=== PATIENT | female | born 1985 | race Caucasian/White ===

== ENCOUNTER 2017-01-15 10:19 | Emergency (ER) | payer OTHER ==
[~2017-01-15] VITALS: Ht 154.9 cm; Wt 68.0 kg
[2017-01-15] MEDS ORDERED: ESTRADIOL 0.075 MG (10:46)
[2017-01-15] MEDS ORDERED: HYDROCODON-ACETAMINOPHN 10-325 (10:46)
--- NOTE | 2017-01-15 10:46 | ED GU-Female ---
General Chief Complaint: -Female Stated Complaint: PASSING BLOOD CLOTS IN URINE Source: patient Exam Limitations: no limitations History of Present Illness Time seen by provider: 10:45 Initial Comments To ER with reports of passing blood clots in her urine. She noticed this this morning when she got up to go the bathroom. She's had a complete hysterectomy so she is certain that this is not from the vagina. She's had some right lower suprapubic and low back pain for the past few days but thought nothing of this. No fevers chills nausea or vomiting. Timing/Duration: getting worse Severity/Quality: moderate Location: RLQ Radiation: none Activities at Onset: none Prior Genitourinary Problems: none Allergies and Home Medications Allergies Uncoded Allergies: IV ANTIBIOTIC UNSURE OF KIND (Allergy, Unknown, 01/15/17) Home Medications Sulfamethoxazole/Trimethoprim 1 Each Tablet, 1 EACH PO BID, #14 Prescribed by: ALICIA AGUSTIN on 01/15/17 1117 [Estradiol 0.075MG Patch (Twice] , (Reported) [Hydrocodon-Acetaminophn 10-325] , (Reported) Constitutional: see HPI EENTM: see HPI Respiratory: no symptoms reported Cardiovascular: no symptoms reported Genitourinary: see HPI Musculoskeletal: no symptoms reported Skin: no symptoms reported Psychiatric/Neurological: No Symptoms Reported Past Nobildv-Uixivb-Hwudwv Hx Patient Social History Alcohol Use: Occasionally Uses Number of Drinks Today: 0 Recreational Drug Use: No Smoking Status: Never a Smoker Recent Foreign Travel: No Contact w/Someone Who Travel: No Recent Hopitalizations: Yes (NECK SURGERY) Physical Abuse: No Sexual Abuse: No Seasonal Allergies Seasonal Allergies: No Surgeries History of Surgeries: Yes Surgeries: Appendectomy, Hysterectomy, Orthopedic Respiratory History of Respiratory Disorde: No Cardiovascular History of Cardiac Disorders: No Neurological History of Neurological Disord: No Reproductive System 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 Gastrointestinal History of Gastrointestinal Di: No Musculoskeletal History of Musculoskeletal Dis: Yes (FX NECK) Psychosocial Suicide Risk Score: 0 Integumentary History of Skin or Integumenta: No Physical Exam Vital Signs Vital Sign - Last 12Hours 01/15/17 10:30 Temp 97.1 Pulse 76 Resp 18 B/P (MAP) 135/99 Pulse Ox 100 Capillary Refill : General Appearance: WD/WN, no apparent distress HEENT: PERRL/EOMI, normal ENT inspection Neck: non-tender, full range of motion Respiratory: no respiratory distress, no accessory muscle use Gastrointestinal: normal bowel sounds, non tender Back: normal inspection, No CVA tenderness (R), No CVA tenderness (L) Extremities: normal range of motion, non-tender Neurologic/Psychiatric: alert, normal mood/affect, oriented x 3 Skin: normal color, warm/dry Progress/Results/Core Measures Results/Orders Lab Results Laboratory Tests Test 01/15/17 10:45 01/15/17 10:50 Range/Units Urine Color YELLOW Urine Clarity SLIGHTLY CLOUDY Urine pH 7 5-9 Urine Specific [place] 1.010 L 1.016-1.022 Urine Protein 2+ H NEGATIVE Urine Glucose (UA) NEGATIVE NEGATIVE Urine Ketones NEGATIVE NEGATIVE Urine Nitrite NEGATIVE NEGATIVE Urine Bilirubin NEGATIVE NEGATIVE Urine Urobilinogen NORMAL NORMAL MG/DL Urine Leukocyte Esterase 3+ H NEGATIVE Urine RBC (Auto) 5+ H NEGATIVE Urine RBC 0-2 /HPF Urine WBC 50-100 H /HPF Urine Squamous Epithelial Cells RARE /HPF Urine Crystals NONE /LPF Urine Bacteria FEW H /HPF Urine Casts NONE /LPF Urine Mucus NEGATIVE /LPF Urine Culture Indicated YES White Blood Count 10.5 4.3-11.0 10^3/uL Red Blood Count 4.55 4.35-5.85 10^6/uL Hemoglobin 13.8 11.5-16.0 G/DL Hematocrit 40 35-52 % Mean Corpuscular Volume 88 80-99 FL Mean Corpuscular Hemoglobin 30 25-34 PG Mean Corpuscular Hemoglobin Concent 34 32-36 G/DL Red Cell Distribution Width 11.8 10.0-14.5 % Platelet Count 245 130-400 10^3/uL Mean Platelet Volume 10.4 7.4-10.4 FL Neutrophils (%) (Auto) 57 42-75 % Lymphocytes (%) (Auto) 35 12-44 % Monocytes (%) (Auto) 7 0-12 % Eosinophils (%) (Auto) 1 0-10 % Basophils (%) (Auto) 0 0-10 % Neutrophils # (Auto) 6.0 1.8-7.8 X 10^3 Lymphocytes # (Auto) 3.7 1.0-4.0 X 10^3 Monocytes # (Auto) 0.8 0.0-1.0 X 10^3 Eosinophils # (Auto) 0.1 0.0-0.3 10^3/uL Basophils # (Auto) 0.0 0.0-0.1 10^3/uL Sodium Level 137 135-145 MMOL/L Potassium Level 3.9 3.6-5.0 MMOL/L Chloride Level 103 98-107 MMOL/L Carbon Dioxide Level 24 21-32 MMOL/L Anion Gap 10 5-14 MMOL/L Blood Urea Nitrogen 10 7-18 MG/DL Creatinine 0.72 0.60-1.30 MG/DL Estimat Glomerular Filtration Rate > 60 BUN/Creatinine Ratio 14 Glucose Level 96 70-105 MG/DL Calcium Level 9.7 8.5-10.1 MG/DL My Orders Orders - ALICIA AGUSTIN APRN Cbc With Automated Diff (01/15/17 10:35) Ua Culture If Indicated (01/15/17 10:35) Urine Bedside (01/15/17 10:35) Basic Metabolic Panel (01/15/17 10:35) Ct Abd/Pelvis Wo(Kidney Stone) (01/15/17 10:45) Urine Culture (01/15/17 10:45) Vital Signs/I&O Vital Sign - Last 12Hours 01/15/17 10:30 Temp 97.1 Pulse 76 Resp 18 B/P (MAP) 135/99 Pulse Ox 100 Diagnostic Imaging Diagonstic Imaging: CT Comments NAME: DIMITRIS CASTRO Scarlet [facility] REC#: [id number] PT STATUS: REG ER : 1985 PHYSICIAN: ALICIA AGUSTIN APRN ADMIT DATE: 01/15/17/ER Draft Date of Exam:01/15/17 CT ABD/PELVIS WO(KIDNEY STONE) PROCEDURE: CT urinary tract, rule out kidney stone. TECHNIQUE: Multiple contiguous axial images were obtained through the abdomen and pelvis without the use of intravenous contrast. INDICATION: Right lower pelvic pain, hematuria. There is no hydronephrosis. There is no perinephric or periureteric edema and no opaque ureteral stones or bladder calculi identified. There is some pelvic phleboliths as well as calcifications of the vas deferens. The gallbladder is surgically absent. Liver, spleen, adrenals and pancreas unremarkable. The aorta is nonaneurysmal. There is no bowel obstruction. There is no appendicitis or diverticulitis. No adnexal lesion. IMPRESSION: No opaque stone or hydronephrosis. Negative bladder. No inflammatory process or acute abdominal pelvic abnormalities. No findings to explain the presenting complaint. Dictated on workstation # [id number] Dict: 01/15/17 1112 Trans: 01/15/17 1117 [facility] [id number] Interpreted by: MARGARET WHITLEY Electronically signed by: Departure Impression Impression: Primary Impression: Urinary tract infection Disposition: HOME, SELF-CARE Condition: Stable Departure-Patient Inst. Decision time for Depature: 11:17 Referrals: NO,LOCAL PHYSICIAN (PCP/Family) Primary Care Physician Patient Instructions: Urinary Tract Infection, Adult (DC) Add. Discharge Instructions: 1. Drink plenty of fluids 2. Antibiotics as directed 3. Return to ER for any concerns All discharge instructions reviewed with patient and/or family. Voiced understanding. Scripts Sulfamethoxazole/Trimethoprim (Bactrim Ds Tablet) 1 Each Tablet 1 EACH PO BID, #14 TAB Prov: ALICIA AGUSTIN APRN 01/15/17 ALICIA AGUSTIN APRN Jan 15, 2017 10:46
[2017-01-15 11:02] LABS: BILIRUBIN,URINE NEGATIVE (NEGATIVE); KETONES,URINE NEGATIVE (NEGATIVE); LEUKOCYTE ESTERASE ,URINE 3+ (NEGATIVE); NITRITE,URINE NEGATIVE (NEGATIVE); PH,URINE 7 (5-9); PROTEIN,URINE 2+ (NEGATIVE); UROBILINOGEN,URINE NORMAL (NORMAL)
[2017-01-15 11:02] LABS: BASOPHILS % (AUTO) 0 % (0-10); EOSINOPHILS # (AUTO) 0.1 10^3/uL (0.0-0.3); EOSINOPHILS % (AUTO) 1 % (0-10); LYMPHOCYTES # (AUTO) 3.7 X 10^3 (1.0-4.0); LYMPHOCYTES % (AUTO) 35 % (12-44); MEAN CORPUSCULAR HEMOGLOBIN 30 PG (25-34); MEAN CORPUSCULAR HGB CONC 34 G/DL (32-36); MEAN CORPUSCULAR VOLUME 88 FL (80-99); MEAN PLATELET VOLUME 10.4 FL (7.4-10.4); MONOCYTES # (AUTO) 0.8 X 10^3 (0.0-1.0); MONOCYTES % (AUTO) 7 % (0-12); NEUTROPHILS % (AUTO) 57 % (42-75); PLATELET COUNT 245 10^3/uL (130-400); RED BLOOD COUNT 4.55 10^6/uL (4.35-5.85); RED CELL DISTRIBUTION WIDTH 11.8 % (10.0-14.5); WHITE BLOOD COUNT 10.5 10^3/uL (4.3-11.0)
[2017-01-15 11:10] LABS: SQUAMOUS EPITHELIAL CELL,UR RARE /HPF; WBC,URINE 50-100 /HPF
[2017-01-15] MEDS ORDERED: SULF1TAB35 PO (11:17)
--- NOTE | 2017-01-15 11:18 | Diagnostic Imaging Report ---
PROCEDURE: CT urinary tract, rule out kidney stone. TECHNIQUE: Multiple contiguous axial images were obtained through the abdomen and pelvis without the use of intravenous contrast. INDICATION: Right lower pelvic pain, hematuria. There is no hydronephrosis. There is no perinephric or periureteric edema and no opaque ureteral stones or bladder calculi identified. There is some pelvic phleboliths as well as calcifications of the vas deferens. The gallbladder is surgically absent. Liver, spleen, adrenals and pancreas unremarkable. The aorta is nonaneurysmal. There is no bowel obstruction. There is no appendicitis or diverticulitis. No adnexal lesion. IMPRESSION: No opaque stone or hydronephrosis. Negative bladder. No inflammatory process or acute abdominal pelvic abnormalities. No findings to explain the presenting complaint. Dictated by: Dictated on workstation # [id number]
[2017-01-15 11:34] LABS: ANION GAP 10 MMOL/L (5-14); BLOOD UREA NITROGEN 10 MG/DL (7-18); BUN/CREATININE RATIO 14; CALCIUM 9.7 MG/DL (8.5-10.1); CARBON DIOXIDE 24 MMOL/L (21-32); CHLORIDE 103 MMOL/L (98-107); CREATININE SERUM 0.72 MG/DL (0.60-1.30); GFR ESTIMATED > 60; GLUCOSE 96 MG/DL (70-105); POTASSIUM 3.9 MMOL/L (3.6-5.0); SODIUM 137 MMOL/L (135-145)
[2017-01-15 11:45] VITALS: BP 125/84
== END 2017-01-15 11:44 | disposition home or self-care (01) ==
LOC: ER 10:27
DX: N39.0 Urinary tract infection, site not specified (principal); Z32.02 Encounter for pregnancy test, result negative; Z90.710 Acquired absence of both cervix and uterus; Z90.49 Acquired absence of other specified parts of digestive tract
CPT/HCPCS: 36415; 74176; 80048; 81000; 85025; 87088; 99283

== ENCOUNTER → 2018-09-08 | Outpatient (CLI) | payer OTHER, BC ==
[~2018-09-08] MED LIST: ESTRADIOL 0.075 MG; HYDROCODON-ACETAMINOPHN 10-325; SULF1TAB35 PO
--- NOTE | 2018-09-08 13:37 | Diagnostic Imaging Report ---
PROCEDURE: US abdomen complete. TECHNIQUE: Multiple Real-time grayscale images were obtained over the abdomen in various projections. INDICATION: Upper abdominal pain. Patient is status post cholecystectomy 2 years ago. FINDINGS: The liver is enlarged at 19.7 cm. No discrete liver mass is identified. The portal vein is patent and shows normal direction of flow. The gallbladder is surgically absent. No biliary ductal dilatation is seen. The pancreas is unremarkable. The spleen is normal in size at 9.4 cm. The kidneys are unremarkable. No calculus or hydronephrosis is seen. There is no ascites. The abdominal aorta is nonaneurysmal. IMPRESSION: Status post cholecystectomy. The study is otherwise unremarkable. No acute abnormality is detected. Dictated by: Dictated on workstation # [id number]
== END ==
LOC: RAD FS 12:49
PROVIDERS: ATTEND Nurse Practitioner Family
DX: R10.10 Upper abdominal pain, unspecified (principal); Z90.49 Acquired absence of other specified parts of digestive tract
CPT/HCPCS: 76700

== ENCOUNTER 2018-09-24 05:35 | Outpatient (CLI) | payer OTHER, BC ==
[~2018-09-24] VITALS: Ht 154.9 cm; Wt 68.0 kg
[2018-09-24] MEDS ORDERED: ESTR-44 TD (10:57)
== END 2018-09-24 12:38 | disposition home or self-care (01) ==
LOC: PREOP 05:35
PROVIDERS: ATTEND Surgery
DX: Z01.818 Encounter for other preprocedural examination (principal)

== ENCOUNTER 2018-10-01 10:21 | Day surgery (SDC) | payer OTHER, BC ==
[~2018-10-01] VITALS: Ht 154.9 cm; Wt 68.0 kg
[~2018-10-01 10:21] MED LIST changes: +ESTR-44 TD
--- OUTSIDE RECORDS SUMMARY | 2018-10-01 10:23 | XMS REPORT | Continuity of Care Document ---
Author Organization Unknown Address Unknown Allergies Active Description Code Type Severity Reaction Onset Reported/Identified Relationship to Patient Clinical Status Yes IV ANTIBIOTIC UNSURE OF KIND IV ANTIBIOTIC UNSURE OF KIND Unknown N/A 01/15/2017 Yes No Known Drug Allergies [id number] Drug Allergy Unknown N/A 09/24/2018 Medications There is no data. Problems Date Dx Coded Attending Type Code Diagnosis Diagnosed By 01/15/2017 ALICIA AGUSTIN APRN Ot N39.0 URINARY TRACT INFECTION, SITE NOT SPECIF 01/15/2017 ALICIA AGUSTIN APRN Ot R10.31 RIGHT LOWER QUADRANT PAIN 01/15/2017 ALICIA AGUSTIN APRN Ot Z32.02 ENCOUNTER FOR TEST, RESULT NEG 01/15/2017 ALICIA AGUSTIN APRN Ot Z90.49 ACQUIRED ABSENCE OF OTHER SPECIFIED PART 01/15/2017 ALICIA AGUSTIN APRN Ot Z90.710 ACQUIRED ABSENCE OF BOTH CERVIX AND UTER 01/17/2017 ALICIA AGUSTIN APRN Ot N39.0 URINARY TRACT INFECTION, SITE NOT SPECIF 01/17/2017 ALICIA AGUSTIN APRN Ot R10.31 RIGHT LOWER QUADRANT PAIN 01/17/2017 ALICIA AGUSTIN APRN Ot Z32.02 ENCOUNTER FOR TEST, RESULT NEG 01/17/2017 ALICIA AGUSTIN APRN Ot Z90.49 ACQUIRED ABSENCE OF OTHER SPECIFIED PART 01/17/2017 ALICIA AGUSTIN APRN Ot Z90.710 ACQUIRED ABSENCE OF BOTH CERVIX AND UTER 01/21/2017 ALICIA AGUSTIN APRN Ot N39.0 URINARY TRACT INFECTION, SITE NOT SPECIF 01/21/2017 ALICIA AGUSTIN APRN Ot R10.31 RIGHT LOWER QUADRANT PAIN 01/21/2017 ALICIA AGUSTIN APRN Ot Z32.02 ENCOUNTER FOR TEST, RESULT NEG 01/21/2017 ALICIA AGUSTIN APRN Ot Z90.49 ACQUIRED ABSENCE OF OTHER SPECIFIED PART 01/21/2017 ALICIA AGUSTIN APRN Ot Z90.710 ACQUIRED ABSENCE OF BOTH CERVIX AND UTER 09/12/2018 JUDY BRAXTON SENIOR COBOL DEVELOPER Ot R10.10 UPPER ABDOMINAL PAIN, UNSPECIFIED 09/12/2018 JUDY BRAXTON SENIOR COBOL DEVELOPER Ot Z90.49 ACQUIRED ABSENCE OF OTHER SPECIFIED PART 09/22/2018 JUDY BRAXTON SENIOR COBOL DEVELOPER Ot R10.10 UPPER ABDOMINAL PAIN, UNSPECIFIED 09/22/2018 JUDY BRAXTON SENIOR COBOL DEVELOPER Ot Z90.49 ACQUIRED ABSENCE OF OTHER SPECIFIED PART 09/24/2018 HILARY KWON, CHANDRIKA Ot Z01.818 ENCOUNTER FOR OTHER PREPROCEDURAL EXAMIN Procedures There is no data. Results Test Result Range Complete urinalysis with reflex to culture - 01/15/17 10:45 Urine color determination YELLOW NRG Urine clarity determination SLIGHTLY CLOUDY NRG Urine pH measurement by test strip 7 5-9 Specific gravity of urine by test strip 1.010 1.016-1.022 Urine protein assay by test strip, semi-quantitative 2+ NEGATIVE Urine glucose detection by automated test strip NEGATIVE NEGATIVE Erythrocytes detection in urine sediment by light microscopy 5+ NEGATIVE Urine ketones detection by automated test strip NEGATIVE NEGATIVE Urine nitrite detection by test strip NEGATIVE NEGATIVE Urine total bilirubin detection by test strip NEGATIVE NEGATIVE Urine urobilinogen measurement by automated test strip (mass/volume) NORMAL NORMAL Urine leukocyte esterase detection by dipstick 3+ NEGATIVE Automated urine sediment erythrocyte count by microscopy (number/high power field) [HPF] NRG Automated urine sediment leukocyte count by microscopy (number/high power field) [HPF] NRG Bacteria detection in urine sediment by light microscopy FEW NRG Squamous epithelial cells detection in urine sediment by light microscopy RARE NRG Crystals detection in urine sediment by light microscopy NONE NRG Casts detection in urine sediment by light microscopy NONE NRG Mucus detection in urine sediment by light microscopy NEGATIVE NRG Complete urinalysis with reflex to culture YES NRG Bacterial urine culture - 01/15/17 10:45 Bacterial urine culture [id number] NRG COLONY COUNT <10,000 NRG FTX;REPORTABLE (SINGLE COLONY OBSERVED) NRG FREE TEXT ENTRY 2 PLUS, NRG FREE TEXT ENTRY 3 LACTOBACILLUS <10,000/ML NRG Complete blood count (CBC) with automated white blood cell (WBC) differential - 01/15/17 10:50 Blood leukocytes automated count (number/volume) 10.5 10*3/uL 4.3-11.0 Blood erythrocytes automated count (number/volume) 4.55 10*6/uL 4.35-5.85 Venous blood hemoglobin measurement (mass/volume) 13.8 g/dL 11.5-16.0 Blood hematocrit (volume fraction) 40 % 35-52 Automated erythrocyte mean corpuscular volume 88 [foz_us] 80-99 Automated erythrocyte mean corpuscular hemoglobin (mass per erythrocyte) 30 pg 25-34 Automated erythrocyte mean corpuscular hemoglobin concentration measurement (mass/volume) 34 g/dL 32-36 Automated erythrocyte distribution width ratio 11.8 % 10.0- 14.5 Automated blood platelet count (count/volume) 245 10*3/uL 130-400 Automated blood platelet mean volume measurement 10.4 [foz_us] 7.4-10.4 Automated blood neutrophils/100 leukocytes 57 % 42-75 Automated blood lymphocytes/100 leukocytes 35 % 12-44 Blood monocytes/100 leukocytes 7 % 0-12 Automated blood eosinophils/100 leukocytes 1 % 0-10 Automated blood basophils/100 leukocytes 0 % 0-10 Blood neutrophils automated count (number/volume) 6.0 10*3 1.8-7.8 Blood lymphocytes automated count (number/volume) 3.7 10*3 1.0-4.0 Blood monocytes automated count (number/volume) 0.8 10*3 0.0- 1.0 Automated eosinophil count 0.1 10*3/uL 0.0-0.3 Automated blood basophil count (count/volume) 0.0 10*3/uL 0.0-0.1 Whole blood basic metabolic panel - 01/15/17 10:50 Serum or plasma sodium measurement (moles/volume) 137 mmol/L 135-145 Serum or plasma potassium measurement (moles/volume) 3.9 mmol/L 3.6-5.0 Serum or plasma chloride measurement (moles/volume) 103 mmol/L 98-107 Carbon dioxide 24 mmol/L 21-32 Serum or plasma anion gap determination (moles/volume) 10 mmol/L 5-14 Serum or plasma urea nitrogen measurement (mass/volume) 10 mg/dL 7-18 Serum or plasma creatinine measurement (mass/volume) 0.72 mg/dL 0.60-1.30 Serum or plasma urea nitrogen/creatinine mass ratio 14 NRG Serum or plasma creatinine measurement with calculation of estimated glomerular filtration rate > NRG Serum or plasma glucose measurement (mass/volume) 96 mg/dL 70-105 Serum or plasma calcium measurement (mass/volume) 9.7 mg/dL 8.5-10.1 Encounters ACCT No. Visit Date/Time Discharge Status Pt. Type Provider Facility Loc./Unit Complaint [id number] 09/24/2018 05:35:00 09/24/2018 12:38:00 DIS Outpatient CHANDRIKA RICHARD MD [facility] PREOP EGD [id number] 09/08/2018 12:49:00 09/08/2018 23:59:59 CLS Outpatient JUDY BRAXTON APRN [facility] RAD FS UPPER ABD PAIN [id number] 01/15/2017 10:27:00 01/15/2017 11:44:00 DIS Emergency ALICIA AGUSTIN APRN [facility] ER PASSING BLOOD CLOTS IN URINE [id number] 10/01/2018 11:15:00 PEN Preadmit CHANDRIKA RICHARD MD [facility] ENDO REFLUX/NAUSEA/EPIGASTRIC PAIN
[2018-10-01] MEDS ORDERED: NS IV 500 ML 500 ML ONE (10:24)
[2018-10-01] MEDS ORDERED: NS IV 500 ML 500 ML IV PRN (10:27)
[2018-10-01] MEDS ORDERED: fentaNYL INJECTION 100 MCG/2 ML AMP IVP ONE (10:30)
[2018-10-01] MEDS ORDERED: LIDOCAINE JELLY 2% 6 ML SYRINGE MM PRN (10:30)
[2018-10-01] MEDS ORDERED: HURRICAINE EXT TUBE (BENZOCAINE) XX PRN (10:30)
[2018-10-01] MEDS ORDERED: MIDAZOLAM 2 MG/2 ML (VERSED) VIAL IVP ONE (10:30)
[2018-10-01 10:47] VITALS: BP 122/92
--- NOTE | 2018-10-01 11:24 | Conscious Sedation/ASA ---
Conscious Sedation Pre-Proced Time 10:30 ASA Score 2 For ASA 3 and 4: Consider anesthesia and medical clearance. Also, for patients with a history of failed moderate sedation consider anesthesia. Airway Lungs Heart ASA score ASA 1: a normal healthy patient ASA 2: a patient with a mild systemic disease (mid diabetes, controlled hypertension, obesity ASA 3: a patient with a severe systemic disease that limits activity (angina, COPD, prior Myocardial infarction) ASA 4: a patient with an incapacitating disease that is a constant threat to life (CHF, renal failure) ASA 5: a moribund patient not expected to survive 24 hrs. (ruptured aneurysm) ASA 6: a declared brain- patient whose organs are being harvested. For emergent operations, add the letter E after the classification Mallampati Classification Grade 2 Sedation Plan Analgesia, Amnesia, Plan communicated to team members, Discussed options with patient/fam, Discussed risks with patient/fam The patient is an appropriate candidate to undergo the planned procedure, sedation, and anesthesia. The patient immediately re-assessed prior to indication. CHANDRIKA RICHARD MD October 01, 2018 11:24
--- NOTE | 2018-10-01 11:25 | Progress Note-Pre Operative ---
Pre-Operative Progress Note H&P Reviewed The H&P was reviewed, patient examined and no changes noted. Date Seen by Provider: October 01, 2018 Time Seen by Provider: 10: Date H&P Reviewed: October 01, 2018 Time H&P Reviewed: :30 Pre-Operative Diagnosis: GERD CHANDRIKA RICHARD MD October 01, 2018 11:24
--- NOTE | 2018-10-01 11:28 | Discharge Inst-Surgical ---
D/C Lap Instructions-HILARY Follow Up Activity as tolerated High Fiber Diet 25g or more per day Avoid Alcohol, Caffeine, Spicy [place] and Acid foods. Drink 64 fluid oz or more of fluids per day. Symptoms to Report: Fever over 101 degree F, Nausea/Vomiting If any problems/questions: Contact your physician or go to Emergency Room CHANDRIKA RICHARD MD October 01, 2018 11:28
[2018-10-01] MEDS ORDERED: ACETAMINOPHEN 325 MG TABLET PO PRN (11:30)
[2018-10-01] MEDS ORDERED: ONDANSETRON 4 MG/2 ML (SDV) Z0FRAN IVP PRN (11:30)
[2018-10-01] MEDS ORDERED: HYDROcodone/APAP 5 MG/325 MG (LORTAB) TAB PO PRN (11:30)
[2018-10-01] MEDS ORDERED: morphine INJ 10 MG/ML 1ML (SYR OR VIAL) IVP PRN (11:30)
[2018-10-01] MEDS ORDERED: LIDOCAINE JELLY 2% 6 ML SYRINGE ONE (11:53)
[2018-10-01] MEDS ORDERED: fentaNYL INJECTION 100 MCG/2 ML AMP ONE (11:54)
[2018-10-01] MEDS ORDERED: HURRICAINE EXT TUBE (BENZOCAINE) ONE (11:54)
[2018-10-01] MEDS ORDERED: MIDAZOLAM 2 MG/2 ML (VERSED) VIAL ONE ×4 (11:54)
[2018-10-01] MEDS ORDERED: diphenhydrAMINE 50 MG/ML INJ (BENADRYL) ONE (12:19)
[2018-10-01 13:05] VITALS: BP 126/83
--- NOTE | 2018-10-01 13:08 | Progress Note-Post Operative ---
Post-Operative Progess Note Surgeon (s)/President/Gm Production & Live Experiences (s) Surgeon CHANDRIKA RICHARD MD President/Gm Production & Live Experiences: none Pre-Operative Diagnosis GERD Post-Operative Diagnosis reflux esophagitis(stage 2), small-moderate, moderate gastritis. Procedure & Operative Findings Date of Procedure 10/01/18 Procedure Performed/Findings EGD with bx. Anesthesia Type cs Estimated Blood Loss Estimated blood loss (mL): minimal Specimens/Packing Specimens Removed none CHANDRIKA RICHARD MD October 01, 2018 13:07
[2018-10-01] MEDS ORDERED: SUCR1TAB36 PO (13:20)
[2018-10-01] MEDS ORDERED: PANT40TA3 PO (13:20)
[2018-10-01 13:35] VITALS: BP 115/83
--- NOTE | 2018-10-01 15:47 | OPERATIVE REPORT ---
DATE OF SERVICE: 10/01/2018 ATTENDING PRIMARY CARE PHYSICIAN: Haider Solomon DO PREOPERATIVE DIAGNOSIS: Gastroesophageal reflux disease. POSTOPERATIVE DIAGNOSES: Reflux esophagitis stage II, small to moderate size hiatal hernia, which appeared to be a type 1 sliding hiatal hernia, approximately 2.5 cm in size, moderate gastritis. PROCEDURE: EGD with biopsy. SURGEON: Chandrika Richard MD ANESTHESIA: Conscious sedation. ESTIMATED BLOOD LOSS: Minimal. FINDINGS: Reflux esophagitis stage II, small to moderate size hiatal hernia, which appeared to be a type 1 sliding hiatal hernia, approximately 2.5 cm in size, moderate gastritis. DISPOSITION: The patient tolerated the procedure well. INDICATIONS: The patient is a 33-year-old female, referred over to us for epigastric burning sensation, reflux as well as occasional regurgitation. She states that she has had these symptoms for some time; however, has not caused a problem or worsened until more recently. She does have significant risk factors including a 3 pack year smoking history for several years; however, states that she quit several years ago. She also does drink alcohol on the weekends and when she does drink, she does have a significant amount in terms of volume. She also does take in significant amounts of caffeinated beverages with coffee and pop. DESCRIPTION OF PROCEDURE: The patient was brought to the endoscopy suite, laid in the left lateral decubitus position with head slightly elevated. After adequate IV pain and sedative medications and conscious sedation anesthesia, the mouthpiece was applied. The endoscope was placed in the mouth, visualizing the pharynx and hypopharyngeal region. Vocal cords, epiglottis and vallecula were identified and appeared to be normal. The endoscope was then gently intubated in the esophageal opening and esophagus was insufflated. The endoscope was then advanced to the first, second and third portion of the esophagus. At the level of the GE junction, a reflux esophagitis stage II was identified. There were no ulcers or strictures identified in this region. The GE junction appeared to be intrathoracic consistent with a hiatal hernia as well. A biopsy was taken using forceps with visualization of good hemostasis. The endoscope was then advanced into the stomach and endoscope retroflexed, visualizing a small to moderate size hiatal hernia, being a type 1 hiatal hernia. The size was approximately 2.5 cm in size and definitely, a cause for some of her symptomatology. There was a moderate severity gastritis throughout the stomach, more towards the stomach antrum. There were no formal ulcerations, polyps or any neoplasms. A biopsy was taken of the antrum to rule out H. pylori with visualization of good hemostasis. The endoscope was then advanced to the pylorus into the first and second portion of the duodenum, which appeared normal with no distal obstructions. The endoscope was then slowly withdrawn while taking a second look and suctioning of residual air with no additional findings. The patient tolerated the procedure well. We will recommend conservative management for now with the necessary lifestyle and diet accommodation including moderation of risk factors, which would include alcoholic beverage intake, caffeinated beverage intake as well as taking small and more frequent meals and avoidance of eating at night. She also needs to take in small and more frequent meals and proceed with head elevation while lying supine. We will also start her on Protonix 40 mg daily as well as Carafate 1 gram q.i.d. for two weeks, then on a p.r.n. basis. If she has continued symptoms despite maximum medical therapy, she does have a small to moderate size hiatal hernia and we would evaluate her for a hiatal hernia repair; however, before proceeding with this, we would get an esophageal manometry study to rule out any esophageal dysmotility. Job ID: [id number] DocumentID: [id number] Dictated Date: 10/01/2018 13:07:42 Advertising Operations Coordinator Date: 10/01/2018 15:46:18 Dictated By: CHANDRIKA RICHARD MD
== END 2018-10-01 13:40 | disposition home or self-care (01) ==
LOC: ENDO 10:21
PROVIDERS: ATTEND Surgery
DX: K21.0 Gastro-esophageal reflux disease with esophagitis (principal); K44.9 Diaphragmatic hernia without obstruction or gangrene; K29.70 Gastritis, unspecified, without bleeding; Z87.891 Personal history of nicotine dependence

== ENCOUNTER → 2019-07-29 | Outpatient (CLI) | payer BC, OTHER ==
[~2019-07-29] MED LIST changes: +PANT40TA3 PO; +SUCR1TAB36 PO
--- NOTE | 2019-07-29 13:02 | Diagnostic Imaging Report ---
PROCEDURE: CT abdomen and pelvis without contrast. TECHNIQUE: Multiple contiguous axial images were obtained through the abdomen and pelvis without the use of intravenous contrast. Auto Exposure Controls were utilized during the CT exam to meet ALARA standards for radiation dose reduction. INDICATION: Urinary tract infections, pelvic pain. COMPARISON: 01/15/2017. FINDINGS: The unopacified urinary bladder and its wall appear normal. There is no appendicitis or diverticulitis. The unobstructed kidneys are nonfocal and nonacute. No radiodense urinary tract stone. No perinephric or periureteric edema. The gallbladder is surgically absent. No pathological bile duct dilatation. No focal inflammatory process. The aorta is nonaneurysmal. There is no ileus or bowel obstruction. No ascites, abscess, hematoma, or other acute fluid collection. No acute finding. IMPRESSION: 1. Unremarkable stable noncontrasted CT abdomen/pelvis. 2. In particular, no acute or chronic urinary tract pathology is apparent. Dictated by: Dictated on workstation # [id number]
== END ==
LOC: RAD 11:49
PROVIDERS: ATTEND Urology
DX: Z87.440 Personal history of urinary (tract) infections (principal)
CPT/HCPCS: 74176

== ENCOUNTER 2019-09-11 07:08 | Outpatient (RCR) | payer BC ==
[~2019-09-11] VITALS: Ht 157.9 cm; Wt 78.1 kg
[~2019-09-11 07:08] MED LIST changes: +CHOL4PAC2 PO; +ETON1VAG VG
== END 2019-09-11 15:49 | disposition home or self-care (01) ==
LOC: PREOP 07:08
PROVIDERS: ATTEND Surgery
DX: Z01.818 Encounter for other preprocedural examination (principal); Z11.59 Encounter for screening for other viral diseases
CPT/HCPCS: 87635

== ENCOUNTER 2019-10-01 09:07 | Outpatient (RCR) | payer BC ==
[~2019-10-01] VITALS: Ht 154 cm; Wt 75.0 kg
== END 2019-10-01 15:40 | disposition home or self-care (01) ==
LOC: PREOP 09:07
PROVIDERS: ATTEND Urology
DX: Z01.818 Encounter for other preprocedural examination (principal); Z11.59 Encounter for screening for other viral diseases
CPT/HCPCS: 87635

== ENCOUNTER 2019-10-05 07:57 | Day surgery (SDC) | payer BC ==
[2019-10-05] VITALS (12 sets, daily range): BP systolic 101–137; BP diastolic 58–93
[~2019-10-05] VITALS: Ht 154 cm; Wt 75.0 kg
--- OUTSIDE RECORDS SUMMARY | 2019-10-05 08:04 | XMS REPORT | Continuity of Care Document ---
Author Organization Unknown Address Unknown Phone Unavailable Allergies Active Description Code Type Severity Reaction Onset Reported/Identified Relationship to Patient Clinical Status Yes IV ANTIBIOTIC UNSURE OF KIND I V ANTIBIOTIC UNSURE OF KIND Unknown N/A 01/15/2017 Yes No Known Drug Allergies [id number] Drug Allergy Unknown N/A 09/29/2019 Medications There is no data. Problems Date Dx Coded Attending Type Code Diagnosis Diagnosed By 04/04/1539 CLOVER MAGANA MD Ot Z01.8 18 ENCOUNTER FOR OTHER PREPROCEDURAL EXAMIN 04/04/1539 CLOVER MAGANA MD Ot Z11.5 9 ENCOUNTER FOR SCREENING FOR OTHER VIRAL 04/04/1548 CHANDRIKA RICHARD MD Ot Z01.81 8 ENCOUNTER FOR OTHER PREPROCEDURAL EXAMIN 04/04/1548 CHANDRIKA RICHARD MD Ot Z11.59 ENCOUNTER FOR SCREENING FOR OTHER VIRAL 01/15/2017 ALICIA AGUSTIN APRN Ot N39 .0 URINARY TRACT INFECTION, SITE NOT SPECIF 01/15/2017 ALICIA AGUSTIN APRN Ot R10.31 RIGHT LOWER QUADRANT PAIN 01/15/2017 ALICIA AGUSTIN APRN Ot Z32.02 ENCOUNTER FOR TEST, RESULT NEG 01/15/2017 ALICIA AGUSTIN APRN Ot Z90.49 ACQUIRED ABSENCE OF OTHER SPECIFIED PART 01/15/2017 ALICIA AGUSTIN APRN Ot Z90.710 ACQUIRED ABSENCE OF BOTH CERVIX AND UTER 01/17/2017 ALICIA AGUSTIN APRN Ot N39 .0 URINARY TRACT INFECTION, SITE NOT SPECIF 01/17/2017 ALICIA AGUSTIN APRN Ot R10.31 RIGHT LOWER QUADRANT PAIN 01/17/2017 ALICIA AGUSTIN APRN Ot Z32.02 ENCOUNTER FOR TEST, RESULT NEG 01/17/2017 ALICIA AGUSTIN APRN Ot Z90.49 ACQUIRED ABSENCE OF OTHER SPECIFIED PART 01/17/2017 ALICIA AGUSTIN APRN Ot Z90.710 ACQUIRED ABSENCE OF BOTH CERVIX AND UTER 01/21/2017 AGUSTIN, PETER J PHOSPHORIC ACID OPERATOR Ot N39 .0 URINARY TRACT INFECTION, SITE NOT SPECIF 01/21/2017 ALICIA AGUSTIN PHOSPHORIC ACID OPERATOR Ot R10.31 RIGHT LOWER QUADRANT PAIN 01/21/2017 ALICIA AGUSTIN PHOSPHORIC ACID OPERATOR Ot Z32.02 ENCOUNTER FOR TEST, RESULT NEG 01/21/2017 ALICIA AGUSTIN PHOSPHORIC ACID OPERATOR Ot Z90.49 ACQUIRED ABSENCE OF OTHER SPECIFIED PART 01/21/2017 ALICIA AGUSTIN PHOSPHORIC ACID OPERATOR Ot Z90.710 ACQUIRED ABSENCE OF BOTH CERVIX AND UTER 09/12/2018 JUDY BRAXTON PHOSPHORIC ACID OPERATOR Ot R10. 10 UPPER ABDOMINAL PAIN, UNSPECIFIED 09/12/2018 JUDY BRAXTON PHOSPHORIC ACID OPERATOR Ot Z90. 49 ACQUIRED ABSENCE OF OTHER SPECIFIED PART 09/22/2018 JUDY BRAXTON PHOSPHORIC ACID OPERATOR Ot R10. 10 UPPER ABDOMINAL PAIN, UNSPECIFIED 09/22/2018 JUDY BRAXTON PHOSPHORIC ACID OPERATOR Ot Z90. 49 ACQUIRED ABSENCE OF OTHER SPECIFIED PART 09/24/2018 CHANDRIKA RICHARD MD Ot Z01.81 8 ENCOUNTER FOR OTHER PREPROCEDURAL EXAMIN 10/01/2018 CHANDRIKA RICHARD MD Ot K21.0 GASTRO-ESOPHAGEAL REFLUX DISEASE WITH ES 10/01/2018 CHANDRIKA RICHARD MD Ot K29.70 GASTRITIS, UNSPECIFIED, WITHOUT BLEEDING 10/01/2018 CHANDRIKA RICHARD MD Ot K44.9 DIAPHRAGMATIC HERNIA WITHOUT OBSTRUCTION 10/01/2018 CHANDRIKA RICHARD MD Ot Z87.89 1 PERSONAL HISTORY OF NICOTINE DEPENDENCE 10/21/2018 JUDY BRAXTON PHOSPHORIC ACID OPERATOR Ot R10. 10 UPPER ABDOMINAL PAIN, UNSPECIFIED 10/21/2018 JUDY BRAXTON PHOSPHORIC ACID OPERATOR Ot Z90. 49 ACQUIRED ABSENCE OF OTHER SPECIFIED PART 10/21/2018 JUDY BRAXTON PHOSPHORIC ACID OPERATOR Ot R10. 10 UPPER ABDOMINAL PAIN, UNSPECIFIED 10/21/2018 JUDY BRAXTON PHOSPHORIC ACID OPERATOR Ot Z90. 49 ACQUIRED ABSENCE OF OTHER SPECIFIED PART 10/24/2018 JUDY BRAXTON PHOSPHORIC ACID OPERATOR Ot R10. 10 UPPER ABDOMINAL PAIN, UNSPECIFIED 10/24/2018 JUDY BRAXTON PHOSPHORIC ACID OPERATOR Ot Z90. 49 ACQUIRED ABSENCE OF OTHER SPECIFIED PART 11/17/2018 CHANDRIKA RICHARD MD Ot K21.0 GASTRO-ESOPHAGEAL REFLUX DISEASE WITH ES 11/17/2018 CHANDRIKA RICHARD MD Ot K29.70 GASTRITIS, UNSPECIFIED, WITHOUT BLEEDING 11/17/2018 CHANDRIKA RICHARD MD, Ot K44.9 DIAPHRAGMATIC HERNIA WITHOUT OBSTRUCTION 11/17/2018 CHANDRIKA RICHARD MD, Ot Z87.89 1 PERSONAL HISTORY OF NICOTINE DEPENDENCE 01/27/2019 JUDY BRAXTON APRN Ot R10. 10 UPPER ABDOMINAL PAIN, UNSPECIFIED 01/27/2019 JUDY BRAXTON APRN Ot Z90. 49 ACQUIRED ABSENCE OF OTHER SPECIFIED PART 04/16/2019 JUDY BRAXTON PHOSPHORIC ACID OPERATOR Ot R10. 10 UPPER ABDOMINAL PAIN, UNSPECIFIED 04/16/2019 JUDY BRAXTON APRN Ot Z90. 49 ACQUIRED ABSENCE OF OTHER SPECIFIED PART 07/31/2019 CLOVER MAGANA MD Ot Z87.4 40 PERSONAL HISTORY OF URINARY (TRACT) INFE 08/15/2019 CLOVER MAGANA MD Ot Z87.4 40 PERSONAL HISTORY OF URINARY (TRACT) INFE 2019 CHANDRIKA RICHARD MD, Ot Z01.81 8 ENCOUNTER FOR OTHER PREPROCEDURAL EXAMIN 2019 CHANDRIKA RICHARD MD, Ot Z11.59 ENCOUNTER FOR SCREENING FOR OTHER VIRAL 09/21/2019 CHANDRIKA RICHARD MD, Ot K21.9 GASTRO-ESOPHAGEAL REFLUX DISEASE WITHOUT 09/21/2019 CHANDRIKA RICHARD MD Ot K62.6 ULCER OF ANUS AND RECTUM 09/21/2019 CHANDRIKA RICHARD MD Ot K62.89 OTHER SPECIFIED DISEASES OF ANUS AND REC 09/21/2019 CHANDRIKA RICHARD MD, Ot K63.89 OTHER SPECIFIED DISEASES OF INTESTINE 09/21/2019 CHANDRIKA RICHARD MD, Ot K92.1 MELENA 09/21/2019 CHANDRIKA RICHARD MD Ot R19.7 DIARRHEA, UNSPECIFIED 09/21/2019 CHANDRIKA RICHARD MD, Ot Z79.89 9 OTHER [facility] (CURRENT) DRUG THERAPY 09/21/2019 CHANDRIKA RICHARD MD, Ot Z82.49 FAMILY HX OF ISCHEM HEART DIS AND OTH DI 09/21/2019 CHANDRIKA RICHARD MD, Ot Z87.89 1 PERSONAL HISTORY OF NICOTINE DEPENDENCE 09/21/2019 CHANDRIKA RICHARD MD, Ot Z88.8 ALLERGY STATUS TO OTH DRUG/MEDS/BIOL SUB 09/23/2019 CHANDRIKA RICHARD MD, Ot K21.9 GASTRO-ESOPHAGEAL REFLUX DISEASE WITHOUT 09/23/2019 CHANDRIKA RICHARD MD, Ot K62.6 ULCER OF ANUS AND RECTUM 09/23/2019 CHANDRIKA RICHARD MD, Ot K62.89 OTHER SPECIFIED DISEASES OF ANUS AND REC 09/23/2019 CHANDRIKA RICHADR MD, Ot K63.89 OTHER SPECIFIED DISEASES OF INTESTINE 09/23/2019 CHANDRIKA RICHARD MD, Ot K92.1 MELENA 09/23/2019 CHANDRIKA RICHARD MD, Ot R19.7 DIARRHEA, UNSPECIFIED 09/23/2019 CHANDRIKA RICHARD MD, Ot Z79.89 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 Results Test Result Range Complete urinalysis with reflex to cultu re - 01/15/17 10:45 Urine color determination YELLOW NRG Urine clarity determination SLIGHTLY CLOUDY NRG Urine pH measurement by test strip 7 5-9 Specific gravity of urine by test strip 1.010 1.016-1.022 Urine protein assay by test strip, semi-quantitative 2+ NEGATIVE Urine glucose detection by automated test strip NE GATIVE NEGATIVE Erythrocytes detection in urine sediment by light micr oscopy 5+ NEGATIVE Urine ketones detection by automated test strip NE GATIVE NEGATIVE Urine nitrite detection by test strip NEGATIVE NEGATIVE Urine total bilirubin detection by test strip NEGA TIVE NEGATIVE Urine urobilinogen measurement by automated test strip (mass/volume) NORMAL NORMAL Urine leukocyte esterase detection by dipstick 3+ NEGATIVE Automated urine sediment erythrocyte cou nt by microscopy (number/high power field) [HPF] NRG Automated urine sediment leukocyte count by microscopy (number/high power field) [HPF] NRG Bacteria detection in urine sediment by light microsco py FEW NRG Squamous epithelial cells detection in u rine sediment by light microscopy RARE NRG Crystals detection in urine sediment by light microsco py NONE NRG Casts detection in urine sediment by light microscopy NONE NRG Mucus detection in urine sediment by light microscopy NEGATIVE NRG Complete urinalysis with reflex to culture YES NRG Bacterial urine culture - 01/15/17 10:45 Bacterial urine culture [id number] NRG COLONY COUNT <10,000 NRG FTX;REPORTABLE (SINGLE COLONY OBSERVED) NRG FREE TEXT ENTRY 2 PLUS, NRG FREE TEXT ENTRY 3 LACTOBACILLUS <10,000/ML NRG Complete blood count (CBC) with automate d white blood cell (WBC) differential - 01/15/17 10:50 Blood leukocytes automated count (number/volume) 10.5 10*3/uL 4.3-11.0 Blood erythrocytes automated count (number/volume) 4.55 10*6/uL 4.35-5.85 Venous blood hemoglobin measurement (mass/volume) 13.8 g/dL 11.5-16.0 Blood hematocrit (volume fraction) 40 % 35-52 Automated erythrocyte mean corpuscular volume 88 [ foz_us] 80-99 Automated erythrocyte mean corpuscular h emoglobin (mass per erythrocyte) 30 pg 25-34 Automated erythrocyte mean corpuscular h emoglobin concentration measurement (mass/volume) 34 g/dL 32-36 Automated erythrocyte distribution width ratio 11. 8 % 10.0- 14.5 Automated blood platelet count [...] 10*3 1.0-4.0 Blood monocytes automated count (number/volume) 0. 8 10*3 0.0-1.0 Automated eosinophil count 0.1 10*3/uL 0 .0-0.3 Automated blood basophil count (count/volume) 0.0 10*3/uL 0.0-0.1 Whole blood basic metabolic panel - 01/04 06/22 10:50 Serum or plasma sodium measurement (moles/volume) 137 mmol/L 135-145 Serum or plasma potassium measurement (moles/volume) 3.9 mmol/L 3.6-5.0 Serum or plasma chloride measurement (moles/volume) 103 mmol/L 98-107 Carbon dioxide 24 mmol/L 21-32 Serum or plasma anion gap determination (moles/volume) 10 mmol/L 5-14 Serum or plasma urea nitrogen measurement (mass/volume ) 10 mg/dL 7-18 Serum or plasma creatinine measurement (mass/volume) 0.72 mg/dL 0.60-1.30 Serum or plasma urea nitrogen/creatinine mass ratio 14 NRG Serum or plasma creatinine measurement w ith calculation of estimated glomerular filtration rate > NRG Serum or plasma glucose measurement (mass/volume) 96 mg/dL 70-105 Serum or plasma calcium measurement (mass/volume) 9.7 mg/dL 8.5-10.1 Coronavirus SARS-CoV-2 SO 2018 - 0 12:56 Coronavirus Ab [Units/volume] in Serum Negative Negative Stool bacteria identification by culture - 09/16/19 11:05 Coronavirus SARS-CoV-2 SO 2018 0 13:29 Coronavirus Ab [Units/volume] in Serum Negative Negative Encounters ACCT No. Visit Date/Time Discharge Status Pt. Type Provider Facility Loc./Unit Complaint [id number] 10/01/2019 09:07:00 15:40:00 DIS Outpatient CLOVER MAGANA MD [facility] PREOP CYSTOCELE [id number] 09/16/2019 08:42:00 12:00:00 DIS Outpatient CHANDRIKA RICHARD MD [facility] ENDO +BLOOD IN STOOL/DIARRHE A/ABD PAIN [id number] 2019 07:08:00 15:49:00 DIS Outpatient CHANDRIKA RICHARD MD [facility] PREOP COLONOSCOPY [id number] 07/29/2019 11:49:00 23:59:59 CLS Outpatient CLOVER MAGANA MD [facility] RAD H/O UTIS [id number] 10/01/2018 10:21:00 13:40:00 DIS Outpatient CHANDRIKA RICHARD MD [facility] ENDO REFLUX/NAUSEA/EPIGASTRI C PAIN [id number] 09/24/2018 05:35:00 019 12:38:00 DIS Outpatient HILARY KWON, CHANDRIKA [facility] PREOP EGD [id number] 09/08/2018 12:49:00 019 23:59:59 CLS Outpatient JUDY BRAXTON PHOSPHORIC ACID OPERATOR [facility] RAD FS UPPER ABD PAIN [id number] 01/15/2017 10:27:00 017 11:44:00 DIS Emergency ALICIA AGUSTIN PHOSPHORIC ACID OPERATOR [facility] ER PASSING BLOOD CLOTS IN URINE [id number] 10/05/2019 09:00:00 P NIGHAT MAGANA MD, CLOVER Cifuentes [facility] CYSTOCELE
--- NOTE | 2019-10-05 08:11 | Progress Note-Pre Operative ---
Pre-Operative Progress Note H&P Reviewed The H&P was reviewed, patient examined and no changes noted. Date Seen by Provider: Oct 05, 2019 Time Seen by Provider: 08:11 Date H&P Reviewed: Oct 05, 2019 Time H&P Reviewed: 08:11 Pre-Operative Diagnosis: CYSTOCELE, LIBBY, AND OAB CLOVER MAGANA MD Oct 05, 2019 08:11
[2019-10-05] MEDS ORDERED: LACTATED RINGERS 1,000 ML IV SCH ×2 (08:13→08:15)
--- NOTE | 2019-10-05 08:13 | Progress Note-Post Operative ---
Post-Operative Progess Note Surgeon (s)/Front Office Administrator (s) Surgeon CLOVER MAGANA MD Front Office Administrator: NONE Pre-Operative Diagnosis CYSTOCELE, LIBBY, AND OAB Post-Operative Diagnosis SAME Procedure & Operative Findings Date of Procedure 10/05/19 Procedure Performed/Findings ANTERIOR REPAIR, PVS, AND CYSTOSCOPY Anesthesia Type GENERAL Estimated Blood Loss Estimated blood loss (mL): 100 CC Specimens/Packing Specimens Removed NONE TO PATH PackinGM ESTRACE VAG PACK CLOVER MAGANA MD Oct 05, 2019 08:13
[2019-10-05] MEDS ORDERED: HYDROcodone/APAP 10 MG/325 MG (LORTAB) TAB PO PRN (08:15)
[2019-10-05] MEDS ORDERED: cefTRIAXone FOR IV USE 1,000 MG in WATER (STERILE) FOR INJECTION 10 ML IV ONE (08:15)
[2019-10-05] MEDS ORDERED: KETOROLAC 30 MG/ML VIAL IV PRN (08:15)
[2019-10-05] MEDS ORDERED: proPOfol 200 MG/20 ML (DIPRIVAN) VIAL IV ONE (08:17)
[2019-10-05] MEDS ORDERED: MIDAZOLAM 2 MG/2 ML (VERSED) VIAL ONE (08:17)
[2019-10-05] MEDS ORDERED: fentaNYL INJECTION 100 MCG/2 ML AMP ONE (08:17)
[2019-10-05] MEDS ORDERED: SEVOFLURANE (ULTANE) 15 ML INHAL SOLN ONE (08:17)
[2019-10-05] MEDS ORDERED: DEXAMETHASONE 10 MG/ML (DECADRON) 1 ML VIAL ONE (08:17)
[2019-10-05] MEDS ORDERED: LIDOCAINE PF 2% 5 ML (XYLOCAINE) VIAL ONE (08:17)
[2019-10-05] MEDS ORDERED: ONDANSETRON 4 MG/2 ML (SDV) Z0FRAN ONE (08:17)
[2019-10-05] MEDS: LACTATED RINGERS 1,000 ML IV PRN ×4 (08:28→21:43)
[2019-10-05] MEDS ORDERED: FAMOTIDINE 20MG/2ML IV (PEPCID) IV ONE (08:30)
--- NOTE | 2019-10-05 08:30 | NUR ---
GIVEN BY DR FOREMAN IN OR
[2019-10-05] MEDS ORDERED: LIDOCAINE/EPI 1%-1:100,000 (XYLOCAINE) 20ML ONE (08:33)
[2019-10-05] MEDS ORDERED: ESTRADIOL VAGINAL CREAM 42.5 GM (ESTRACE) VG ONE (08:33)
[2019-10-05] MEDS ORDERED: KETOROLAC 30 MG/ML VIAL ONE (09:42)
[2019-10-05] MEDS ORDERED: HYDROmorphone 2 MG/ML VIAL (DILAUDID) IV ONE (09:45)
[2019-10-05] MEDS ORDERED: ONDANSETRON 4 MG/2 ML (SDV) Z0FRAN IVP PRN (09:45)
[2019-10-05] MEDS ORDERED: morphine INJ 10 MG/ML 1ML (SYR OR VIAL) IVP ONE (09:45)
[2019-10-05] MEDS: KETOROLAC 30 MG/ML VIAL IV PRN ×3 (09:50→22:51)
--- NOTE | 2019-10-05 10:20 | NUR ---
Pt to room 305 via bed accompanied by PACU staff. Report rec'd from Vane Oro RN. Assessment completed, VS taken, SCD's on and activated, IV fluids to pump. Pt and S.O. oriented to room and call light. Payne catheter patent, draining to dependent drainage. Fresh ice water provided. Pt denies needs or concerns at this time.
[2019-10-05] MEDS ORDERED: HYDROcodone/APAP 10 MG/325 MG (LORTAB) TAB PO ONE ×2 (11:11→11:12)
[2019-10-05] MEDS: HYDROcodone/APAP 10 MG/325 MG (LORTAB) TAB PO PRN ×2 (11:23→18:10)
--- NOTE | 2019-10-05 11:52 | Anesthesia-General Post-Op ---
General Patient Condition Mental Status/LOC: Same as Preop Cardiovascular: Satisfactory Nausea/Vomiting: Absent Respiratory: Satisfactory Pain: Controlled Complications: Absent Post Op Complications Complications None Follow Up Care/Instructions Patient Instructions None needed. Anesthesia/Patient Condition Patient Condition Patient is doing well, no complaints, stable vital signs, no apparent adverse anesthesia problems. RIVERA FOREMAN DO Oct 05, 2019 11:52
--- NOTE | 2019-10-05 14:28 | NUR ---
RT notified of need for IS instruction
--- NOTE | 2019-10-05 19:10 | NUR ---
REPORT RECEIVED AND CARES RESUMED BY THIS NURSE.
--- NOTE | 2019-10-05 19:25 | NUR ---
COMPLETE SHIFT ASSESSMENT DONE. VSS.
--- NOTE | 2019-10-05 19:31 | OPERATIVE REPORT ---
DATE OF SERVICE: 10/05/2019 PREOPERATIVE DIAGNOSIS: Cystocele and stress urinary incontinence with overactive bladder. POSTOPERATIVE DIAGNOSIS: Cystocele and stress urinary incontinence with overactive bladder. OPERATION PERFORMED: Anterior repair, pubovaginal sling and cystoscopy. SURGEON: Klaus Magana MD ANESTHESIA: General. COMPLICATIONS: None. DESCRIPTION OF PROCEDURE: Under satisfactory general anesthesia, the patient in the lithotomy position, genitalia were prepped and draped in the usual sterile fashion with separate vaginal prep. Payne catheter was inserted draining urine. The anterior vaginal wall was infiltrated with 2% lidocaine with epinephrine. A vertical incision was made with dissection was carried to the fascia on both sides. The fascia was then approximated with interrupted 2-0 Vicryl giving very good support to the bladder. Then, I went ahead and passed the Solyx device on both sides using the described technique. The sling was sitting nicely under the mid urethra with no tension or twist. I removed the Payne catheter and performed cystoscopy to confirm the integrity of the bladder, ureteral orifices and urethra and presence of the sling under the mid urethra. I left the bladder at least have full to perform a manual Valsalva maneuver that was negative. Reinserted the Payne catheter, draining again clear fluid. The excess vaginal epithelium was sharply excised and then the edges were approximated with a running 2-0 Vicryl suture. 2 grams Estrace vaginal pack was inserted. Estimated blood loss was 100 mL, none of which was replaced. The patient tolerated the procedure and anesthesia well and was sent to recovery room in stable condition. Job ID: [id number] DocumentID: [id number] Dictated Date: 10/05/2019 09:23:16 Tr[employer] And [employer]r Operator Date: 10/05/2019 19:31:26 Dictated By: KLAUS MAGANA MD
[2019-10-06] VITALS (7 sets, daily range): BP systolic 105–129; BP diastolic 66–84
[2019-10-06] MEDS: HYDROcodone/APAP 10 MG/325 MG (LORTAB) TAB PO PRN ×3 (01:08→15:10)
[2019-10-06] MEDS: KETOROLAC 30 MG/ML VIAL IV PRN ×3 (05:01→17:39)
--- NOTE | 2019-10-06 05:45 | NUR ---
JENNINGS CATH REMOVED WELL VAGINAL PACKING. PT MAYE WELL. PT TO CALL WHEN NEED TO GET UP TO VOID.
--- NOTE | 2019-10-06 06:40 | NUR ---
PT HAS VOIDED WITHOUT DIFFICULTY.
[2019-10-06] MEDS ORDERED: LEVOFLOXACIN 250 MG/50 ML IVPB 50 ML IV SCH ×2 (08:13→08:15)
--- NOTE | 2019-10-06 11:20 | NUR ---
Dr Correa here, to see pt. updated on pt voids and scans (see interventions). Order for straight cath and continue with current cares.
--- NOTE | 2019-10-06 11:32 | Progress Note - Urology ---
Progress Note-Urology Progress Notes/Assess & Plan Progress/Assessment & Plan DOING WELL. MINIMAL OOZE VAGINALLY. VOIDING WELL. NO LEAKAGE. PVR 220. PLAN STRAIGHT CATH AND RECHECK LATER TO DECIDE DISCHARGE PLANS Final Diagnosis CYSTOCELE, LIBBY, AND OAB CLOVER MAGANA MD Oct 06, 2019 11:32
--- NOTE | 2019-10-06 13:33 | NUR ---
Dr. Correa called and updated with most recent void and scan. Straight cath and continue with current plan of cares. May need to keep pt overnight tonight.
--- NOTE | 2019-10-06 17:43 | NUR ---
Dr. Correa called and updated on pt status. Orders to keep pt overnight and continue with current plan of care, and change toradol to tramadol.
--- NOTE | 2019-10-06 19:30 | NUR ---
INITIAL SHIFT ASSESSMENT DONE. VSS. ST CATH DONE PER ORDERS, REMOVING 550CC CLEAR YELLOW URINE.
--- NOTE | 2019-10-06 21:05 | NUR ---
PT RESTING VERY WELL. NOT AWAKENED AT THIS TIME.
--- NOTE | 2019-10-06 23:00 | NUR ---
PT REPORTS SHE GOT 3 GOOD HOURS OF REST AND WOKE UP TO VOID. PT VOIDED 200 CC, BUT FELT IF SHE NEEDED TO VOID MORE. ICE PACK PLACED IN UNDERWEAR AND PT ENCOURAGED TO REST FOR 15 MIN AND TRY AGAIN. UPON RETURNING TO BATHROOM PT ABLE TO VOID ANOTHER 200 CC. BLADDER SCAN THEN PERFORMED WITH 124 CC LEFT IN BLADDER. PT ENCOURAGED TO TRY TO VOID MORE OFTEN THAN EVERY 4 HOURS TO SEE IF IT MAKES IT EASIER.
--- NOTE | 2019-10-07 01:05 | NUR ---
PT UP TO VOID. VOIDED 400 CC WITHOUT DIFFICULTY. BLADDER SCAN FOLLOWING 195 CC.
--- NOTE | 2019-10-07 01:50 | NUR ---
PT UP TO VOID AGAIN AND FEELS IF SHE EMPTIED BLADDER. 400 CC VOIDED WITH 45 ON BLADDER SCAN FOLLOWING.
--- NOTE | 2019-10-07 02:50 | NUR ---
PT UP TO VOID. VOIDED 300 CC WITHOUT DIFFICULTY WITH 7CC IN BLADDER FOLLOWING.
--- NOTE | 2019-10-07 05:20 | NUR ---
PT RESTED WELL. UP TO VOID WITH 400 CC OUTPUT. BLADDER SCAN 124 CC. PT DENIES ANY PAIN, NEEDS OR C/O'S.
[2019-10-07 08:15] VITALS: BP 116/81
--- NOTE | 2019-10-07 08:15 | NUR ---
PT UP TO THE BATHROOM. VOIDED X2 PER PT WITH TOTAL OF 400 MLS BEFORE THIS RN ENTERED ROOM. VOIDED ANOTHER 150 MLS. BLADDER SCAN REVEALS 74 MLS. ASSESSMENT COMPLETED. VSS.
[2019-10-07] MEDS: HYDROcodone/APAP 10 MG/325 MG (LORTAB) TAB PO PRN (08:43)
--- NOTE | 2019-10-07 08:45 | NUR ---
SALINE LOCK D/C'ED WITH TIP INTACT. SITE CLEAR.
--- NOTE | 2019-10-07 09:00 | NUR ---
DR. MAGANA HERE TO SEE PT. PLAN FOR DISCHARGE.
--- NOTE | 2019-10-07 09:15 | NUR ---
SHOWERED WITHOUT PROBLEMS.
--- NOTE | 2019-10-07 09:32 | Progress Note - Urology ---
Progress Note-Urology Progress Notes/Assess & Plan Progress/Assessment & Plan DOING AND FEELING WELL. VOIDING WELL AND EMPTYING WELL. DRY. HAPPY. HOME WITH INSTRUCTIONS Final Diagnosis CYSTOCELE AND INCONTINENCE CLOVER MAGANA MD Oct 07, 2019 09:32
--- NOTE | 2019-10-07 09:34 | Discharge Inst-Urology ---
Discharge Inst-Urology Reconcile Patient Problems Problems Reviewed?: Yes Final Diagnosis CYSTOCELE, MIXED INCONTINENCE, AND OAB Patient Instructions/Follow Up Plan/Assessment/Instructions Please make appointment to been seen in office in 3 weeks. Rest till then Showers, no bath Keep bowels soft and moving Increase oral fluids for 48 hours and then as needed. Diet as tolerated. If questions or concerns contact your physician Or seek help at emergency department. CLOVER MAGANA MD Oct 07, 2019 09:34
[2019-10-07] MEDS ORDERED: CIPR-225 PO (09:40)
[2019-10-07] MEDS ORDERED: TRAM50TA3 PO (09:43)
--- NOTE | 2019-10-07 10:00 | NUR ---
DISCHARGE INSTRUCTIONS REVIEWED WITH COPY TO PT. STATES UNDERSTANDING OF ALL INSTRUCTIONS AND NEED TO F/U SCHEDULED AND NEEDED.
[2019-10-07 10:15] VITALS: BP 116/81
--- NOTE | 2019-10-07 10:15 | NUR ---
DISMISSED FROM [facility] VIA W/C TO FAMILY CAR IN STABLE CONDITION ACC BY SPOUSE AND SINTIA BREEN RN.
== END 2019-10-07 10:15 | disposition home or self-care (01) ==
LOC: SDC 07:57 → WS 10:20 → SDC 10-07 10:15
PROVIDERS: ATTEND Urology
DX: N81.10 Cystocele, unspecified (principal); N39.3 Stress incontinence (female) (male); N32.81 Overactive bladder; K21.9 Gastro-esophageal reflux disease without esophagitis; Z87.891 Personal history of nicotine dependence; Z79.899 Other long term (current) drug therapy; Z11.2 Encounter for screening for other bacterial diseases
CPT/HCPCS: 87081; 94664

== ENCOUNTER 2020-02-29 10:10 | Emergency (ER) | payer BC ==
[~2020-02-29] VITALS: Ht 154 cm; Wt 74.8 kg
[~2020-02-29 10:10] MED LIST changes: +CIPR-225 PO; -PANT40TA3 PO; +PANT40TA52 PO; +TRAM50TA3 PO
[2020-02-29 10:38] LABS: BILIRUBIN,URINE NEGATIVE (NEGATIVE); CLARITY,URINE CLEAR; COLOR,URINE YELLOW; GLUCOSE, URINE (UA) NEGATIVE (NEGATIVE); KETONES,URINE NEGATIVE (NEGATIVE); LEUKOCYTE ESTERASE ,URINE NEGATIVE (NEGATIVE); NITRITE,URINE POSITIVE (NEGATIVE); PROTEIN,URINE NEGATIVE (NEGATIVE)
[2020-02-29 10:45] LABS: BACTERIA,URINE FEW /HPF
[2020-02-29] MEDS ORDERED: ONDA4TAB11 PO (10:54)
[2020-02-29] MEDS ORDERED: CYCL10TA9 PO ×2 (10:54→10:58)
[2020-02-29] MEDS ORDERED: MELO15TA14 PO ×2 (10:54→10:58)
[2020-02-29] MEDS ORDERED: NITR-65 PO ×2 (10:54→10:58)
--- NOTE | 2020-02-29 10:54 | ED Back Pain ---
General Chief Complaint: Back Problems Stated Complaint: BACK PAIN, NAUSEATED Nursing Triage Note: PT PRESENTS TO ED FROM HOME WITH COMPLAINTS OF BILAT FLANK PAIN X 2 DAYS. PT ALSO REPORTS NAUSEA. PT REPORTS SHE JUST FINISHED FLAGYL FOR BV AND TOOK THREE DOSES OF DIFLUCAN OVER LAST WEEK FOR A YEAST INFECTION. Nursing Sepsis Screen: No Definite Risk Source of Information: Patient History of Present Illness Date Seen by Provider: Feb 29, 2020 Time Seen by Provider: 10:35 Initial Comments PT ARRIVES VIA POV C/O BILATERAL FLANK PAIN SINCE YESTERDAY C/O NAUSEA, NO VOMITING C/O BURNING ON URINATION HAD NORMAL BM TODAY--STATES BM'S ARE ALWAYS LOOSE NO FEVER NO ABDOMINAL PAIN PT HAS BEEN TREATED BY DR. TOLENTINO LAST WEEK FOR B.V. AND YEAST INFECTION--FINISHED FLAGYL AND DIFLUCAN. STATES SHE STILL HAS SOME VAGINAL DISCHARGE. PT HAS HAD HYSTERECTOMY/BSO AND BLADDER SLING. PT HAS HISTORY OF FREQUENT UTI'S NO HISTORY OF KIDNEY STONES HAS TAKE OTC AZO, AND NYQUIL, AND DRINKING WATER AND CRANBERRY JUICE SINCE YESTERDAY PT DID CUT WOOD ALL DAY YESTERDAY, BUT NO SPECIFIC TRAUMA TO BACK Other Comments PCP: [facility]: DR. TOLENTINO UROLOGY: DR. MAGANA Allergies and Home Medications Allergies Coded Allergies: No Known Drug Allergies (Unverified , 09/29/19) Home Medications Ciprofloxacin HCl 500 Mg Tablet, 500 MG PO BID Prescribed by: SINTIA BREEN on 10/07/19 0940 Cyclobenzaprine HCl 10 Mg Tablet, 10 MG PO Q8H PRN for SPASMS Prescribed by: JAVIER CANDELARIO on 02/29/20 1058 Meloxicam 15 Mg Tablet, 15 MG PO DAILY Prescribed by: JAVIER CANDELARIO on 02/29/20 1058 Nitrofurantoin Monohyd/M-Cryst 100 Mg Capsule, 1 TAB PO BID Prescribed by: JAVIER CANDELARIO on 02/29/20 1058 Ondansetron 4 Mg Tab.rapdis, 4 MG PO Q4H Prescribed by: JAVIER CANDELARIO on 02/29/20 1054 Tramadol HCl 50 Mg Tablet, 50 MG PO Q4H PRN for PAIN-MODERATE (5-7) Prescribed by: SINTIA BREEN on 10/07/19 0943 Patient Home Medication List Home Medication List Reviewed: Yes Review of Systems Constitutional: no symptoms reported EENTM: no symptoms reported Respiratory: no symptoms reported Cardiovascular: no symptoms reported Gastrointestinal: see HPI; No abdominal pain, No constipation, No loss of appetite; nausea; No vomiting Genitourinary: see HPI, dysuria Control/STD Prophylaxis: Other (HYST/BSO) Musculoskeletal: see HPI, back pain Skin: no symptoms reported Psychiatric/Neurological: No Symptoms Reported Past Opjkniz-Svprda-Ctdoup Hx Past Med/Social Hx: Reviewed and Corrections made Patient Social History Alcohol Use: Occasionally Uses Recreational Drug Use: No Smoking Status: Former Smoker Type Used: Cigarettes Former Smoker, Quit: September 24, 2004 2nd Hand Smoke Exposure: Yes Recent Foreign Travel: No Contact w/Someone Who Travel: No Recent Infectious Disease Expo: No Recent Hopitalizations: No Physical Abuse: No Sexual Abuse: No Fear: No Immunizations Up To Date Date of Influenza Vaccine: Feb 10, 2019 Seasonal Allergies Seasonal Allergies: No Past Medical History Surgeries: Yes (NECK, WISDOM TEETH, RIGHT ANKLE x2; RIGHT ACL) Appendectomy, Bladder Surgery, Gallbladder, Hysterectomy, Oophorectomy, Orthopedic Respiratory: No Cardiac: No Neurological: No 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 Sexually Transmitted Disease: No HIV/AIDS: No Genitourinary: Yes (CYSTOCELE) UTI-Chronic Gastrointestinal: Yes (S/P CHOLECYSTECTOMY) Gastroesophageal Reflux, Chronic Diarrhea, Irritable Bowel Musculoskeletal: Yes (FX NECK-S/P SURGERY; R ANKLE FX/ORIF WITH HARDWARE REMOVAL) Arthritis, Chronic Back Pain, Fractures Endocrine: No HEENT: No Loss of Vision: Denies Hearing Impairment: Denies Cancer: No Psychosocial: No Integumentary: No Blood Disorders: No Adverse Reaction/Blood Tranf: No (N/A) Physical Exam Vital Signs Vital Signs - First Documented 02/29/20 10:20 Temp 36.8 Pulse 111 Resp 20 B/P (MAP) 139/81 (100) Pulse Ox 95 Capillary Refill : Less Than 3 Seconds Height, Weight, BMI Height: 5'1.00" Weight: 150lbs. 0.0oz. 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 Norm as Tested Skin: Normal Color, Warm/Dry; No Rash Progress/Results/Core Measures Results/Orders Lab Results Laboratory Tests Test 02/29/20 10:23 Range/Units Urine Color YELLOW Urine Clarity CLEAR Urine pH 6.0 5-9 Urine Specific [place] <=1.005 1.016-1.022 Urine Protein NEGATIVE NEGATIVE Urine Glucose (UA) NEGATIVE NEGATIVE Urine Ketones NEGATIVE NEGATIVE Urine Nitrite POSITIVE H NEGATIVE Urine Bilirubin NEGATIVE NEGATIVE Urine Urobilinogen 1.0 < = 1.0 MG/DL Urine Leukocyte Esterase NEGATIVE NEGATIVE Urine RBC (Auto) NEGATIVE NEGATIVE Urine RBC NONE /HPF Urine WBC 5-10 H /HPF Urine Squamous Epithelial Cells 5-10 /HPF Urine Crystals NONE /LPF Urine Bacteria FEW H /HPF Urine Casts NONE /LPF Urine Mucus NEGATIVE /LPF Urine Culture Indicated YES My Orders Orders - JAVIER CANDELARIO DO Urine Bedside (02/29/20 10:31) Ua Culture If Indicated (02/29/20 10:31) Urine Culture (02/29/20 10:23) Vital Signs/I&O 02/29/20 02/29/20 10:20 10:57 Temp 36.8 36.8 Pulse 111 97 Resp 20 20 B/P (MAP) 139/81 (100) 132/74 (100) Pulse Ox 95 96 Blood Pressure Mean: 100 Progress Progress Note : Progress Note OFFERED TO DO ADDITIONAL TESTS SUCH BLOOD WORK AND CT SCAN, PT OPTS TO TRY ANTIBIOTICS FOR UTI, AND PAIN MEDICATION AND MUSCLE RELAXANTS FOR PULLED MUSCLES IN BACK, SHE CUT WOOD ALL DAY YESTERDAY ADVISED TO RETURN TO ER IF SYMPTOMS WORSENED. Departure Impression Primary Impression: UTI (urinary tract infection) Additional Impression: Low back strain Disposition: 01 HOME, SELF-CARE Condition: Stable Departure-Patient Inst. Referrals: PRAVEEN GOMEZ DO (PCP/Family) Primary Care Physician Patient Instructions: Urinary Tract Infection, Adult (DC), Low Back Pain (DC), Muscle Strain (DC) Add. Discharge Instructions: MOIST HEAT TO BACK AT 20 MINUTE INTERVALS FOLLOW UP WITH YOUR DR IN 3-4 DAYS IF NO BETTER, RETURN TO ER IF WORSE All discharge instructions reviewed with patient and/or family. Voiced understanding. Scripts Meloxicam (Mobic) 15 Mg Tablet 15 MG PO DAILY, #10 TAB Prov: JAVIER CANDELARIO DO 02/29/20 Cyclobenzaprine HCl (Cyclobenzaprine HCl) 10 Mg Tablet 10 MG PO Q8H PRN for SPASMS, #15 TAB 0 Refills Prov: JAVIER CANDELARIO DO 02/29/20 Nitrofurantoin Monohyd/M-Cryst (Macrobid 100 mg Capsule) 100 Mg Capsule 1 TAB PO BID, #20 CAP Prov: JAVIER CANDELARIO DO 02/29/20 Ondansetron (Ondansetron Odt) 4 Mg Tab.rapdis 4 MG PO Q4H for Nausea/Vomiting, #10 TAB Prov: JAVIER CANDELARIO DO 02/29/20 JAVIER CANDELARIO DO Feb 29, 2020 10:54
[2020-02-29 10:57] VITALS: BP 132/74
== END 2020-02-29 10:57 | disposition home or self-care (01) ==
LOC: EDUNIT# 10:10 → ER 10:11
DX: S39.012A Strain of muscle, fascia and tendon of lower back, initial encounter (principal); N39.0 Urinary tract infection, site not specified; G89.29 Other chronic pain; M54.9 Dorsalgia, unspecified; Z87.891 Personal history of nicotine dependence; Z79.891 Long term (current) use of opiate analgesic; W26.8XXA Contact with other sharp object(s), not elsewhere classified, initial encounter
CPT/HCPCS: 81000; 87077; 87088; 99282

== ENCOUNTER 2020-07-18 05:28 | Outpatient (RCR) | payer BC ==
[~2020-07-18] VITALS: Ht 154.9 cm; Wt 74.8 kg
[~2020-07-18 05:28] MED LIST changes: +CYCL10TA9 PO; +MELO15TA14 PO; +NITR-65 PO; +ONDA4TAB11 PO
== END 2020-07-18 09:08 | disposition home or self-care (01) ==
LOC: PREOP 05:28
PROVIDERS: ATTEND Surgery
DX: Z01.812 Encounter for preprocedural laboratory examination (principal); K21.9 Gastro-esophageal reflux disease without esophagitis; R11.2 Nausea with vomiting, unspecified; Z20.822 Contact with and (suspected) exposure to COVID-19
CPT/HCPCS: 87635

== ENCOUNTER → 2020-07-19 | Outpatient (CLI) | payer BC ==
[~2020-07-19] MED LIST changes: +PANT40TA2 PO
--- NOTE | 2020-07-19 14:53 | Diagnostic Imaging Report ---
INDICATION: Left knee injury with pain and popping. There is a large fluid collection along the lateral aspect of the left knee measuring 5.8 x 3.1 x 3.0 cm. This is consistent with either effusion or hematoma. No other abnormalities are identified. IMPRESSION: Fluid collection lateral left knee, as described. Dictated by: Dictated on workstation # [id number]
== END ==
LOC: RAD 13:16
PROVIDERS: ATTEND Nurse Practitioner Family
DX: S80.912A Unspecified superficial injury of left knee, initial encounter (principal); X58.XXXA Exposure to other specified factors, initial encounter
CPT/HCPCS: 76881

== ENCOUNTER 2020-07-20 10:10 | Day surgery (SDC) | payer BC ==
[~2020-07-20] VITALS: Ht 154.9 cm; Wt 74.8 kg
[2020-07-20] VITALS (15 sets, daily range): BP systolic 100–126; BP diastolic 60–84
[~2020-07-20 10:10] MED LIST changes: -PANT40TA2 PO
[2020-07-20] MEDS ORDERED: NS IV 500 ML 500 ML ONE (10:13)
[2020-07-20] MEDS ORDERED: NS IV 500 ML 500 ML IV PRN (10:30)
[2020-07-20] MEDS ORDERED: LIDOCAINE JELLY 2% 6 ML SYRINGE MM PRN (10:30)
[2020-07-20] MEDS ORDERED: HURRICAINE EXT TUBE (BENZOCAINE) XX PRN (10:30)
[2020-07-20] MEDS ORDERED: fentaNYL INJ 100 MCG/2 ML AMP IVP ONE (10:30)
[2020-07-20] MEDS ORDERED: MIDAZOLAM 5 MG/5 ML (VERSED) VIAL IV ONE (10:30)
[2020-07-20] MEDS ORDERED: LIDOCAINE JELLY 2% 6 ML SYRINGE ONE (10:56)
[2020-07-20] MEDS ORDERED: MIDAZOLAM 5 MG/5 ML (VERSED) VIAL ONE ×2 (10:56)
[2020-07-20] MEDS ORDERED: fentaNYL INJ 100 MCG/2 ML AMP ONE (10:56)
--- NOTE | 2020-07-20 13:22 | Progress Note-Pre Operative ---
Pre-Operative Progress Note H&P Reviewed The H&P was reviewed, patient examined and no changes noted. Date Seen by Provider: Jul 20, 2020 Time Seen by Provider: 10:30 Date H&P Reviewed: Jul 20, 2020 Time H&P Reviewed: 10:30 Pre-Operative Diagnosis: CHANDRIKA GARCIA MD Jul 20, 2020 13:22
--- NOTE | 2020-07-20 13:22 | Conscious Sedation/ASA ---
Conscious Sedation Pre-Proced Time 10:30 ASA Score 2 For ASA 3 and 4: Consider anesthesia and medical clearance. Also, for patients with a history of failed moderate sedation consider anesthesia. Airway Lungs Heart ASA score ASA 1: a normal healthy patient ASA 2: a patient with a mild systemic disease (mid diabetes, controlled hypertension, obesity ASA 3: a patient with a severe systemic disease that limits activity (angina, COPD, prior Myocardial infarction) ASA 4: a patient with an incapacitating disease that is a constant threat to life (CHF, renal failure) ASA 5: a moribund patient not expected to survive 24 hrs. (ruptured aneurysm) ASA 6: a declared brain- patient whose organs are being harvested. For emergent operations, add the letter E after the classification Mallampati Classification Grade 2 Sedation Plan Analgesia, Amnesia, Plan communicated to team members, Discussed options with patient/fam, Discussed risks with patient/fam The patient is an appropriate candidate to undergo the planned procedure, sedation, and anesthesia. The patient immediately re-assessed prior to indication. CHANDRIKA RICHARD MD Jul 20, 2020 13:22
[2020-07-20] MEDS ORDERED: SUCR1TAB36 PO (13:24)
[2020-07-20] MEDS ORDERED: PANT40TA2 PO (13:24)
--- NOTE | 2020-07-20 13:26 | Progress Note-Post Operative ---
Post-Operative Progess Note Surgeon (s)/Sizer Machine (s) Surgeon CHANDRIKA RICHARD MD Sizer Machine: none Pre-Operative Diagnosis GERD Post-Operative Diagnosis reflux esophagitis(stage 2), small-moderate HH(2.5cm), moderate-severe gastritis. Procedure & Operative Findings Date of Procedure 07/20/20 Procedure Performed/Findings EGD with bx. Anesthesia Type cs Estimated Blood Loss Estimated blood loss (mL): minimal Specimens/Packing Specimens Removed ge jxn, antrum CHANDRIKA RICHARD MD Jul 20, 2020 13:26
[2020-07-20] MEDS ORDERED: ACETAMINOPHEN 325 MG TABLET PO PRN (13:30)
[2020-07-20] MEDS ORDERED: morphine INJ 10 MG/ML 1ML (SYR OR VIAL) IVP PRN ×2 (13:30)
[2020-07-20] MEDS ORDERED: HYDROcodone/APAP 5 MG/325 MG (LORTAB) TAB PO PRN (13:30)
[2020-07-20] MEDS ORDERED: ONDANSETRON 4 MG/2 ML (SDV) Z0FRAN IVP PRN (13:30)
--- NOTE | 2020-07-20 15:11 | OPERATIVE REPORT ---
DATE OF SERVICE: 07/20/2020 ATTENDING PRIMARY CARE PHYSICIAN: Dr. Haider Enriquez. PREOPERATIVE DIAGNOSIS: Gastroesophageal reflux disease. POSTOPERATIVE DIAGNOSES: Reflux esophagitis between stage II and III, small to moderate size hiatal hernia approximately 2.5 cm in size, moderate to severe gastritis, and normal duodenum. PROCEDURES PERFORMED: EGD with biopsy. SURGEON: Chandrika Richard MD. ANESTHESIA: Conscious sedation. ESTIMATED BLOOD LOSS: Minimal. FINDINGS: Reflux esophagitis between stage II and III, small to moderate size hiatal hernia approximately 2.5 cm in size, moderate to severe gastritis, and normal duodenum. DISPOSITION: The patient tolerated the procedure well. INDICATIONS FOR PROCEDURE: The patient is a 34-year-old female, who we have seen before in the past. We had done an EGD on her in 2019. She was found to have a small to moderate size hiatal hernia approximately 2.5 cm in size as well as a moderate gastritis. We started her on Protonix at this time. She has been under a significant amount of stress lately and states that she has had worsening epigastric pain and discomfort. She does not report any episodes of nausea or no vomiting as well as no hematemesis or coffee ground emesis. She states that she does eat a fair amount of spicy and greasy foods as well as acidic foods and does drink alcohol on an intermittent basis. DESCRIPTION OF PROCEDURE: The patient was brought to the endoscopy suite and laid in the left lateral decubitus position. After adequate IV pain and sedative medications and conscious sedation anesthesia, the mouthpiece was applied. The endoscope was placed in the mouth, visualizing the pharynx and hypopharyngeal region. The vocal cords, epiglottis and vallecula identified and appeared to be normal. The endoscope was then gently intubated, the esophageal opening and esophagus insufflated. The endoscope was then advanced to the first, second and third portion of esophagus. At the level of the GE junction, a reflux esophagitis between stage II and III was identified. No ulcers or strictures were identified in this region. A biopsy was taken with forceps with visualization of good hemostasis. The endoscope was then advanced in the stomach and the endoscope retroflexed again visualizing a small to moderate size hiatal hernia approximately 2.5 cm in size. There was a moderate to severe gastritis more towards the stomach antrum with some very small superficial erosions of the antrum. Biopsy was taken of one of these areas with forceps with visualization of good hemostasis. The endoscope was then advanced to the pylorus and the first and second portion of the duodenum, which appeared normal with no distal obstructions. The endoscope was then slowly withdrawn while taking a second look and suctioning of residual air with no additional findings. The patient tolerated the procedure well. We will recommend the necessary lifestyle and diet accommodation including small and more frequent meals, avoidance of eating at night as well as head elevation while lying supine. She also needs to avoid caffeinated beverages, spicy, greasy and acidic foods. We also would like her to continue with her Protonix 40 mg daily; however, we will also add omeprazole 40 mg daily, spread apart throughout the day as well as Carafate 1 gram q.i.d. for the next two weeks and then also on a p.r.n. basis. Job ID: [id number] DocumentID: [id number] Dictated Date: 07/20/2020 11:57:08 Occupational Therapy Specialist Date: 07/20/2020 15:11:34 Dictated By: CHANDRIKA RICHARD MD
== END 2020-07-20 12:25 | disposition home or self-care (01) ==
LOC: ENDO 10:10
PROVIDERS: ATTEND Surgery
DX: K21.00 Gastro-esophageal reflux disease with esophagitis, without bleeding (principal); K44.9 Diaphragmatic hernia without obstruction or gangrene; K29.70 Gastritis, unspecified, without bleeding; G89.29 Other chronic pain; Z90.710 Acquired absence of both cervix and uterus; Z87.891 Personal history of nicotine dependence
CPT/HCPCS: 88305

== ENCOUNTER → 2020-07-28 | Outpatient (CLI) | payer BC ==
[~2020-07-28] MED LIST changes: +PANT40TA2 PO
--- NOTE | 2020-07-28 11:50 | Diagnostic Imaging Report ---
EXAMINATION: Magnetic resonance imaging of the left knee without intravenous contrast DATE: July 28, 2020. COMPARISON: None. INDICATION: 34-year-old female, left knee pain. Injury playing basketball. TECHNIQUE: Multiplanar, multisequence non contrast enhanced MR imaging was accomplished. FINDINGS: MENISCI: There is an oblique and vertically oriented tear involving the posterior horn of the medial meniscus extending near the posterior root attachment and the peripheral third of the medial meniscus. There is a vertically oriented tear involving the posterior horn of the lateral meniscus. The inferior popliteomeniscal fascicle is not well seen and likely torn. LIGAMENTS AND TENDONS: There is a complete tear of the anterior cruciate ligament. The posterior cruciate ligament is intact. The meniscofemoral ligament is torn. The superficial component of the medial collateral ligament complex is intact. The iliotibial band, mid third lateral capsular ligament, fibular collateral ligament, biceps femoris tendon and conjoined tendon are intact. The quadriceps tendon and patella ligament are intact. JOINT: The articular cartilage surfaces are intact. There is a small knee joint effusion without identified intra-articular body or prominent synovitis. BONE: There is edema-like signal in the lateral femoral condyle in the region of the lateral femoral notch. There is a bone contusion of the posterior aspect of the lateral tibial plateau and also of the posterior aspect of the medial tibial plateau. BURSAE AND SOFT TISSUES: There is no Lucero's cyst. IMPRESSION: 1. Complete tear of the anterior cruciate ligament. Intact posterior cruciate ligament. 2. Tear of the meniscofemoral ligament with intact superficial component of the medial collateral ligament complex. 3. Tears of the posterior horns of the medial and lateral meniscus. 4. Bone contusion of the lateral femoral condyle in the region of the lateral femoral notch and also bone contusions of the posterior aspects of the medial and lateral tibial plateaus. 5. Intact articular cartilage. Small knee joint effusion. Dictated by: Dictated on workstation # [id number]
== END ==
LOC: RAD 11:00
PROVIDERS: ATTEND Emergency Medicine
DX: S83.512A Sprain of anterior cruciate ligament of left knee, initial encounter (principal); S83.412A Sprain of medial collateral ligament of left knee, initial encounter; S83.242A Other tear of medial meniscus, current injury, left knee, initial encounter; S83.282A Other tear of lateral meniscus, current injury, left knee, initial encounter; Y93.67 Activity, basketball
CPT/HCPCS: 73721

== ENCOUNTER 2021-04-26 11:40 | Outpatient (RCR) | payer BC, OTHER ==
[2021-04-12 11:03] LABS: ABSOLUTE RETIC # 111 10e9/uL (24-90); BASOPHILS # (AUTO) 0.1 10^3/uL (0.0-0.1); BASOPHILS % (AUTO) 1 % (0-10); EOSINOPHILS % (AUTO) 1 % (0-10); HEMATOCRIT 41 % (35-52); HEMOGLOBIN 13.9 g/dL (11.5-16.0); LYMPHOCYTES # (AUTO) 2.9 10^3/uL (1.0-4.0); LYMPHOCYTES % (AUTO) 37 % (12-44); MEAN CORPUSCULAR HEMOGLOBIN 31 pg (25-34); MEAN CORPUSCULAR HGB CONC 34 g/dL (32-36); MEAN CORPUSCULAR VOLUME 91 fL (80-99); MEAN PLATELET VOLUME 9.7 fL (9.0-12.2); MONOCYTES # (AUTO) 0.5 10^3/uL (0.0-1.0); MONOCYTES % (AUTO) 6 % (0-12); NEUTROPHILS # (AUTO) 4.3 10^3/uL (1.8-7.8); NEUTROPHILS % (AUTO) 55 % (42-75); PLATELET COUNT 334 10^3/uL (130-400); RETICULOCYTE % 2.44 % (0.50-2.40); WHITE BLOOD COUNT 7.8 10^3/uL (4.3-11.0)
[2021-04-12 11:25] LABS: BILIRUBIN,TOTAL 0.5 MG/DL (0.1-1.0); CALCIUM 9.4 MG/DL (8.5-10.1); CREATININE SERUM 0.75 MG/DL (0.60-1.30); POTASSIUM 4.1 MMOL/L (3.6-5.0); TOTAL PROTEIN 7.8 GM/DL (6.4-8.2)
[~2021-04-26 11:40] MED LIST changes: +CYCL10TA25 PO; -CYCL10TA9 PO; -SULF1TAB35 PO; +SULF1TAB38 PO
== END 2021-05-05 | disposition home or self-care (01) ==
LOC: ONC 11:40
PROVIDERS: ATTEND Internal Medicine Hematology & Oncology
DX: E61.1 Iron deficiency (principal)
CPT/HCPCS: 80053; 81256; 83615; 85025; 85045; G0463; 99195; 99213

== ENCOUNTER 2021-05-17 10:39 | Outpatient (RCR) | payer OTHER ==
[2021-05-17 10:48] LABS: BASOPHILS # (AUTO) 0.1 10^3/uL (0.0-0.1); BASOPHILS % (AUTO) 1 % (0-10); EOSINOPHILS # (AUTO) 0.1 10^3/uL (0.0-0.3); EOSINOPHILS % (AUTO) 1 % (0-10); HEMATOCRIT 42 % (35-52); HEMOGLOBIN 14.2 g/dL (11.5-16.0); LYMPHOCYTES # (AUTO) 2.8 10^3/uL (1.0-4.0); LYMPHOCYTES % (AUTO) 34 % (12-44); MEAN CORPUSCULAR HEMOGLOBIN 31 pg (25-34); MEAN CORPUSCULAR HGB CONC 34 g/dL (32-36); MEAN CORPUSCULAR VOLUME 93 fL (80-99); MEAN PLATELET VOLUME 9.6 fL (9.0-12.2); MONOCYTES # (AUTO) 0.5 10^3/uL (0.0-1.0); MONOCYTES % (AUTO) 6 % (0-12); NEUTROPHILS # (AUTO) 4.8 10^3/uL (1.8-7.8); NEUTROPHILS % (AUTO) 58 % (42-75); PLATELET COUNT 340 10^3/uL (130-400); WHITE BLOOD COUNT 8.2 10^3/uL (4.3-11.0)
== END 2021-06-05 | disposition home or self-care (01) ==
LOC: ONC 10:39
PROVIDERS: ATTEND Internal Medicine Hematology & Oncology
DX: E83.110 Hereditary hemochromatosis (principal); R79.89 Other specified abnormal findings of blood chemistry; Z83.49 Family history of other endocrine, nutritional and metabolic diseases
CPT/HCPCS: 85025; 99195; G0463; 99213